=== PATIENT | male | born 1985 | race Caucasian/White ===

== ENCOUNTER 2018-09-06 10:33 | Observation (INO) | payer MEDICAID, OTHER ==
[2018-09-06 10:42] VITALS: BMI 36.1
[2018-09-06] MEDS ORDERED: Sodium Chloride 0.9% 1,000 ML IV ONE (11:25)
--- NOTE | 2018-09-06 11:27 | C.PDOC ---
History Of Present Illness WORSENING BLEEDING HEMORRHOID X 3 WEEKS. PS W INTERMIT HEMORRHOID SX "MANY YEARS" BUT NOW W BLEEDING W EVERY BM. +OCC ASSOC RECTAL PAIN +CONSTIPATION "BC I'M AFRAID TO GO". NO FEVER, NV. EXAM NONTOXIC ABD NEG RECTAL DEFERRED DR MENDIOLA REMAINDER NEG Time Seen by Provider: 09/06/18 11:03 Chief Complaint (Nursing): GI Problem History Per: Patient History/Exam Limitations: no limitations Onset/Duration Of Symptoms: Days Current Symptoms Are (Timing): Still Present Severity: Moderate Past Medical History Reviewed: Historical Data, Nursing Documentation, Vital Signs Vital Signs: Last Vital Signs Temp 98.4 F 09/06/18 10:43 Pulse 86 09/06/18 10:43 Resp 18 09/06/18 10:43 BP 120/86 09/06/18 10:43 Pulse Ox 97 09/06/18 10:43 - Medical History PMH: Asthma Denies: Chronic Kidney Disease Surgical History: No Surg Hx - [facility] APPLICATION OF SPLINT (10/12/05) Family History: States: No Known Family Hx - Social History Hx Alcohol Use: No Hx Substance Use: No - Immunization History Hx Tetanus Toxoid Vaccination: No Hx Influenza Vaccination: No Hx Pneumococcal Vaccination: No Review Of Systems Except As Marked, All Systems Reviewed And Found Negative. Constitutional: Negative for: Fever, Chills Gastrointestinal: Positive for: Constipation, Rectal Pain, Other (bleedi ng,hemorrhoids). Negative for: Nausea, Vomiting Physical Exam - Physical Exam Appears: Non-toxic Skin: Normal Color, Warm, Dry Head: Atraumatic, Normacephalic Eye(s): bilateral: Normal Inspection Neck: Supple Chest: Symmetrical Cardiovascular: Rhythm Regular Respiratory: Normal Breath Sounds, No Rales, No Rhonchi, No Plerual Rub Gastrointestinal/Abdominal: Normal Exam, Soft, No Tenderness, No Rebound Rectal: Other (deferred ) Neurological/Psych: Oriented x3, Normal Speech ED Course And Treatment - Laboratory Results Result Diagrams: 09/06/18 11:41 ECG: Interpreted By Me ECG Rhythm: Sinus Rhythm ECG Interpretation: Normal Rate From EC O2 Sat by Pulse Oximetry: 97 (RA) Pulse Ox Interpretation: Normal Progress - Re-Evaluation Re-evaluation Note: 09/06/18 11:[address] MENDIOLA REFERRAL, ADMIT TO HIS SVC AND PREOP - Data Reviewed Data Reviewed: Lab, EKG, Old records Medical Decision Making Medical Decision Making: Plan: --Labs --UA --IV Fluids Disposition Counseled Patient/Family Regarding: Studies Performed, Diagnosis - Disposition Disposition: HOSPITALIZED Disposition Time: 11:29 Condition: SERIOUS Forms: [facility] (Slovenian) - POA Present On Arrival: None - Clinical Impression Clinical Impression: Bleeding external hemorrhoids - Scribe Statement The provider has reviewed the documentation as recorded by the Carter [place] Provider Attestation: All medical record entries made by the Carter were at my direction and personally dictated by me. I have reviewed the chart and agree that the record accurately reflects my personal performance of the history, physical exam, medical decision making, and the department course for this patient. I have also personally directed, reviewed, and agree with the discharge instructions and disposition.
[2018-09-06] MEDS ORDERED: Sodium Chloride 0.9% 1,000 ML ONE (11:36)
[2018-09-06 11:52] LABS: BASO # 0.1 K/uL (0.0-0.2); BASO % 1.1 % (0.0-2.0); EOS # 0.2 K/uL (0.0-0.7); HEMOGLOBIN 16.5 g/dL (12.0-18.0); LYMPH # 2.5 K/uL (1.0-4.3); LYMPH % 43.1 % (20.0-40.0); MEAN CELL VOLUME 81.9 fL (80.0-94.0); MEAN CORPUSCULAR HEMOGLOBIN 28.3 pg (27.0-31.0); MEAN CORPUSCULAR HGB CONC 34.6 g/dL (33.0-37.0); MONO # 0.5 K/uL (0.0-0.8); MONO % 8.9 % (0.0-10.0); NEUT # 2.5 K/uL (1.8-7.0); NEUT % 42.9 % (50.0-75.0); NRBC % 0.1 % (0.0-2.0); RBC 5.85 Mil/uL (4.40-5.90); RED CELL DISTRIBUTION WIDTH 13.6 % (11.5-14.5); WHITE BLOOD COUNT 5.9 K/uL (4.8-10.8)
[2018-09-06 12:01] LABS: PROTHROMBIN TIME 10.5 SECONDS (9.7-12.2)
[2018-09-06 12:01] LABS: SQUAMOUS EPITHIAL < 1 /hpf (0-5)
[2018-09-06 12:02] LABS: URINE CLARITY Clear (Clear); URINE COLOR YELLOW (YELLOW)
[2018-09-06 12:03] LABS: URINE BILIRUBIN NEGATIVE (NEGATIVE); URINE BLOOD NEGATIVE (NEGATIVE); URINE GLUCOSE (UA) NEGATIVE (Normal); URINE LEUKOCYTE ESTERASE NEGATIVE Leu/uL (Negative); URINE PROTEIN NEGATIVE (NEGATIVE); URINE UROBILINOGEN 0.2 mg/dL (0.2-1.0)
[2018-09-06 12:11] LABS: ALB/GLOB RATIO 1.8 (1.0-2.1); ALBUMIN 4.6 g/dL (3.5-5.0); ALT/SGPT 46 U/L (21-72); AST/SGOT 52 U/L (17-59); BLOOD UREA NITROGEN 14 mg/dL (9-20); CALCIUM 9.3 mg/dl (8.6-10.4); GFR NON-AFRICAN AMERICAN > 60
[2018-09-06] MEDS ORDERED: Clindamycin 600mg/50ml NS 600 MG/50 ML BAG IVPB ONE (14:32)
[2018-09-06] MEDS ORDERED: Lidocaine Hydrochloride 0 ML INJ ONE (14:33)
[2018-09-06] MEDS ORDERED: Bupivacaine 0.25% 20 ML INJ IJ ONE (14:33)
[2018-09-06] MEDS ORDERED: Rocuronium 10 mg/ml (5 ml) ONE (14:48)
[2018-09-06] MEDS ORDERED: Succinylcholine Chloride 20 mg/ml Syr (5 ml) IV ONE (14:48)
[2018-09-06] MEDS ORDERED: Propofol 10 mg/ml Inj (20 ML) ONE (14:48)
[2018-09-06] MEDS ORDERED: Midazolam 2 MG/2 ML VIAL ONE (14:48)
[2018-09-06] MEDS ORDERED: Lidocaine Hydrochloride 5 ML INJ ONE (14:48)
[2018-09-06] MEDS ORDERED: Absorbable Gelatin Sponge Size 100 ONE (15:38)
[2018-09-06] MEDS ORDERED: Absorbable Gelatin Sponge Size 12-7 ONE (15:39)
[2018-09-06] MEDS ORDERED: HYDROmorphone 0.5 mg/0.5 ml ISec ONE (16:35)
[2018-09-06] MEDS: HYDROmorphone 0.5 mg/0.5 ml ISec IVP PRN ×3 (16:35→17:06)
[2018-09-06] MEDS: Lactated Ringer's 1,000 ML IV SCH ×2 (18:26→23:10)
[2018-09-06] MEDS: Clindamycin 300 MG in Sodium Chloride 0.9% 50 ML IVPB SCH ×2 (18:27→22:25)
[2018-09-06 18:39] VITALS: RESP 20
[2018-09-07 01:14] VITALS: O2SAT 98
[2018-09-07] MEDS: Lactated Ringer's 1,000 ML IV SCH ×3 (02:00→13:23)
[2018-09-07] MEDS: Oxycodone/Acetaminophen 5/325 mg Tab PO PRN ×2 (02:37→11:15)
[2018-09-07] MEDS: Clindamycin 300 MG in Sodium Chloride 0.9% 50 ML IVPB SCH ×2 (05:30→11:18)
--- NOTE | 2018-09-07 06:21 | OP ---
PROCEDURE DATE: 09/06/2018 PREOPERATIVE DIAGNOSIS: Thrombosed bleeding hemorrhoids. POSTOPERATIVE DIAGNOSIS: Thrombosed bleeding hemorrhoids with anal fissure and rectal polyp. PROCEDURES PERFORMED: 1. Complex hemorrhoidectomy. 2. Internal sphincterotomy. 3. Full-thickness transanal incision of a rectal tumor. SURGEON: Armando Gordon MD ANESTHESIA: General endotracheal. BLOOD LOSS: 50 mL. POSTOPERATIVE CONDITION: Stable. INDICATIONS FOR SURGERY: This is a 33-year-old male, seen in the ER today with severe rectal pain and bleeding, found to have thrombosed bleeding hemorrhoids, taken to the operating room for surgical management. GROSS FINDINGS: The patient had a right anterior thrombosed hemorrhoid with ulceration, evidence of bleeding associated with a rectal polyp which was removed separately via a full-thickness excision. DESCRIPTION OF THE PROCEDURE: The patient was taken to the operating room. General anesthesia was administered. He was placed in lithotomy position. Prior to sigmoidoscopy, it was carried out to 10 cm with the above findings but was limited due to poor prep. Next, an anal retractor was placed and the right anterior hemorrhoid was grasped with a tamika clamp, and the base was ligated with a chromic. An elliptical incision was made surrounding i, and it was removed that off to the anal skin. Bleeding was controlled using the Bovie. The larger rectal blood vessel was repaired. Once this was done, a corresponding polyp was removed full thickness into the muscle. Bleeding was controlled using Bovie. There was a large rectal defect. A full-thickness advancement flap closure was performed by mobilizing muscle and fascia. Counter incisions were made and a 32 sq cm advancement flap closure was performed using heavy chromic. Wound was irrigated with saline, found to be hemostatic. The patient tolerated the procedure well and returned to recovery room in stable condition. Armando Gordon MD
[2018-09-07 07:05] LABS: BASO # 0.1 K/uL (0.0-0.2); BASO % 0.7 % (0.0-2.0); EOS # 0.2 K/uL (0.0-0.7); EOS % 1.5 % (0.0-4.0); HEMOGLOBIN 14.8 g/dL (12.0-18.0); LYMPH # 3.3 K/uL (1.0-4.3); LYMPH % 29.7 % (20.0-40.0); MEAN CELL VOLUME 81.6 fL (80.0-94.0); MEAN CORPUSCULAR HEMOGLOBIN 27.8 pg (27.0-31.0); MEAN CORPUSCULAR HGB CONC 34.1 g/dL (33.0-37.0); MEAN PLATELET VOLUME 8.3 fL (7.2-11.7); MONO # 0.6 K/uL (0.0-0.8); MONO % 5.7 % (0.0-10.0); NEUT # 6.9 K/uL (1.8-7.0); NEUT % 62.4 % (50.0-75.0); NRBC % 0.2 % (0.0-2.0); RBC 5.31 Mil/uL (4.40-5.90); RED CELL DISTRIBUTION WIDTH 13.7 % (11.5-14.5)
[2018-09-07 07:19] LABS: WHITE BLOOD COUNT 11.1 K/uL (4.8-10.8)
[2018-09-07 07:35] LABS: BLOOD UREA NITROGEN 10 mg/dL (9-20); CALCIUM 8.6 mg/dl (8.6-10.4); GFR NON-AFRICAN AMERICAN > 60
[2018-09-07 08:19] VITALS: BP 123/72; PULSE 73; TEMP 98.4
--- NOTE | 2018-09-07 20:44 | CARD ---
APPROVED REPORT Date of service: 09/06/2018 EKG Measurement Heart [id number] <Conclusion> Normal sinus rhythm Normal ECG
[2018-09-08] MEDS ORDERED: Pneumococcal 23-Valent Vaccine IM ONE (10:00)
[2018-09-09] MEDS ORDERED: Pneumococcal 23-Valent Vaccine IM ONE (10:00)
== END 2018-09-07 13:52 | disposition home or self-care (01) ==
LOC: C.ER 10:33 → C.9E 11:25 → C.3T 12:11
PROVIDERS: ADMIT Surgery; ATTEND Surgery
DX: K60.2 Anal fissure, unspecified (principal); K62.1 Rectal polyp; K64.4 Residual hemorrhoidal skin tags
CPT/HCPCS: 36415; 46255; 80048; 80053; 81001; 85025; 85610; 85730; 86850; 86900; 88304; 93005; 99285; C9113; G0378; J1170; J1885; J2250; J2405; J2704; J3010; J7030; J7120; Q0164